=== PATIENT | female | born 2000 | race Two or more races ===

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

== ENCOUNTER 2023-10-22 11:31 | Inpatient (IN) ==
[~2023-10-22 11:31] MED LIST: Lactated Ringers 1000 ml BAG 1,000 ML IV ONE; Lidocaine 1% VIAL 10 MG/ML 30 ML VIAL INJ PRN; Penicillin G Potassium IV 5,000,000 UNITS in NS 0.9% 100 ml BAG 100 ML IVPB ONE
[2023-10-22] MEDS ORDERED: miSOPROStol 100 mcg TAB PO ONE ×2 (12:20→16:45)
[2023-10-22 13:49] LABS: Urine Benzodiazepine Screen None Detected (None Detect); Urine Cannabinoids Screen None Detected (None Detect); Urine Opiates Screen None Detected (None Detect)
[2023-10-22] MEDS: Penicillin G Potassium IV 3,000,000 UNITS in NS 0.9% 100 ml BAG 100 ML IVPB SCH ×2 (18:02→23:43)
[2023-10-22 22:31] LABS: ABS Eosinophils 0.1 10^3/uL (0.0-0.5); ABS Lymphocytes 1.9 10^3/uL (1.0-4.8); ABS Neutrophils 5.6 10^3/uL (1.5-7.6); Eosinophil % 1.5 %; Hematocrit 32.5 % (35-45); Hemoglobin 10.9 g/dL (11.5-14.3); Lymphocyte % 22.1 %; Mean Corpuscular Hemoglobin 26.9 pg (27-33); Mean Corpuscular Hgb Conc 33.4 g/dL (31-36); Mean Corpuscular Volume 80.5 fL (80-97); Mean Platelet Volume 9.4 fL (7.5-11.2); Platelet Count 247 10^3/uL (150-450); Red Blood Count 4.04 10^6/uL (3.63-4.92); Red Cell Distribution Width 14.1 % (12-17); White Blood Count 8.6 10^3/uL (3.8-11.8)
[2023-10-22] MEDS ORDERED: OBEPIDURAL (200 ML) 200 ML EPIDURAL ONE (22:39)
[2023-10-22] MEDS ORDERED: Lidocaine 1.5% EPI 1:200,000 30 ML SDV ONE (22:39)
[2023-10-22] MEDS ORDERED: Phenylephrine 40 mcg/mL 10mL (400mcg) SYRINGE IV PUSH PRN ×2 (23:10)
[2023-10-22] MEDS ORDERED: Lactated Ringers 1000 ml BAG 1,000 ML IV ONE (23:10)
[2023-10-22] MEDS ORDERED: Sodium Citrate/Citric Acid LIQ 15 ML UDC PO PRN (23:10)
[2023-10-22] MEDS: Lactated Ringers 1000 ml BAG 1,000 ML IV SCH (23:20)
[2023-10-22] MEDS ORDERED: OBEPIDURAL (200 ML) 200 ML EPIDURAL SCH (23:45)
[2023-10-23] MEDS ORDERED: Penicillin G Potassium IV 3,000,000 UNITS in NS 0.9% 100 ml BAG 100 ML IVPB SCH (02:00)
[2023-10-23] MEDS ORDERED: fentaNYL 100 mcg/2 ml 50 MCG/ML VIAL ONE ×2 (02:38→06:21)
[2023-10-23] MEDS ORDERED: Lidocaine 2% w/ EPI 1:200,000 MPF 20 ML SDV VIAL ONE ×2 (02:38→06:21)
[2023-10-23] MEDS: Lactated Ringers 1000 ml BAG 1,000 ML IV SCH ×3 (02:41→10:26)
[2023-10-23 07:10] LABS: Urine Appearance Clear; Urine Bilirubin Negative (Negative); Urine Blood 2+ (Negative); Urine Color Straw; Urine Glucose Negative (Negative); Urine Ketones Negative (Negative); Urine Nitrite Negative (Negative); Urine Protein Negative (Negative); Urine Specific Gravity 1.006 (1.002-1.030); Urine Urobilinogen Negative (Negative)
[2023-10-23 07:11] LABS: Urine Bacteria 1+ (Absent); Urine Red Blood Cell Trace(0-2/hpf) (Absent); Urine White Blood Cell 1+(6-10/hpf) (Absent)
[2023-10-23 07:27] LABS: Albumin 3.3 g/dL (3.2-5.2); Albumin/Globulin Ratio 1.3 (1-3); Calcium 8.6 mg/dL (8.6-10.3); Creatinine, Serum 0.56 mg/dL (0.51-0.95); Globulin 2.6 g/dL (2-4); Potassium 3.8 mmol/L (3.5-5.0); Total Bilirubin 0.4 mg/dL (0.2-1.0); Total Protein 5.9 g/dL (6.4-8.9); Uric Acid 5.8 mg/dL (2.3-6.6); eGFR CKD-EPI 129.8 (>60)
[2023-10-23] MEDS ORDERED: Oxytocin in LR 20,000 MILLI.UNIT/1,000 ML BAG IV SCH (07:45)
[2023-10-23] MEDS: Penicillin G Potassium IV 3,000,000 UNITS in NS 0.9% 100 ml BAG 100 ML IVPB SCH (08:38)
[2023-10-23] MEDS ORDERED: Dibucaine 1% OINT 28.35 GM TUBE PR PRN (12:11)
[2023-10-23] MEDS ORDERED: Glycerin ADULT 2.4 gm SUPP PR PRN (12:11)
[2023-10-23] MEDS ORDERED: Witch Hazel PAD JAR TOPICAL PRN (12:11)
[2023-10-24 08:50] LABS: ABS Lymphocytes 1.8 10^3/uL (1.0-4.8); ABS Monocytes 0.9 10^3/uL (0.0-0.9); ABS Neutrophils 9.4 10^3/uL (1.5-7.6); Eosinophil % 0.3 %; Hematocrit 27.7 % (35-45); Hemoglobin 9.2 g/dL (11.5-14.3); Lymphocyte % 14.7 %; Mean Corpuscular Hemoglobin 27.1 pg (27-33); Mean Corpuscular Hgb Conc 33.4 g/dL (31-36); Mean Corpuscular Volume 81.3 fL (80-97); Mean Platelet Volume 9.2 fL (7.5-11.2); Platelet Count 197 10^3/uL (150-450); Red Blood Count 3.41 10^6/uL (3.63-4.92); Red Cell Distribution Width 14.4 % (12-17)
[2023-10-24] MEDS ORDERED: Ondansetron ODT 4 mg TAB 4 MG TAB SL PRN (10:35)
[2023-10-24] MEDS: Penicillin G Potassium IV 3,000,000 UNITS in NS 0.9% 100 ml BAG 100 ML IVPB SCH ×2 (19:24→19:25)
[2023-10-25 08:41] VITALS: BP 130/68
== END 2023-10-25 11:11 | disposition home or self-care (01) | DRG 807 ==
LOC: MCHOBOUT 11:31 → MCHOB 11:49
PROVIDERS: ADMIT Midwife; ATTEND Midwife